=== PATIENT | male | born 1960 | race Caucasian/White ===

== ENCOUNTER → 2020-05-31 10:54 | Outpatient (CLI) | payer OTHER, SELFPAY ==
--- NOTE | 2020-05-31 11:05 | XR_ITS ---
PROCEDURE: XR FOOT WT BEARING RT 3V CLINICAL INDICATION: DM ulcer of right great toe. COMPARISON: No exams were available for comparison FINDINGS: No fracture or dislocation. No lytic or blastic change. There is normal mineralization. The joint spaces are well-preserved. There is minor spurring of the navicular 1st cuneiform articulation. There are small spurs of the calcaneus at the insertion of Achilles tendon and plantar tendon. There is marked flattening of the plantar arch. Other findings:None. IMPRESSION: Marked pes planus, minor degenerative spurring of the navicular 1st cuneiform articulation Dictated by: Dr. Clem Cisse MD 06/01/2020 10:17 Dr. Clem Cisse MD in [place] 06/01/2020 10:17
--- NOTE | 2020-05-31 11:05 | XR_ITS ---
PROCEDURE: XR FOOT WT BEARING LT 3V CLINICAL INDICATION: Diabetes COMPARISON: Right foot same date FINDINGS: No fracture or dislocation. No lytic or blastic change. There is normal mineralization. The joint spaces are well-preserved. No significant degenerative/arthritic changes. No erosive changes evident. There are small spurs of the calcaneus at the insertion of Achilles tendon and plantar tendon. There is mild flattening of the plantar arch. Other findings:None. IMPRESSION: Calcaneal spurs and mild pes planus Dictated by: Dr. Clem Cisse MD 06/01/2020 10:19 Dr. Clem Cisse MD in [place] 06/01/2020 10:19
[2020-05-31 11:28] LABS: Basophils # 0.1 K/mm3 (0-0.2); Eosinophils # 0.5 K/mm3 (0.0-0.4); Eosinophils % 6.5 % (0.1-12.0); Hematocrit 40.3 % (42.0-52.0); Hemoglobin 14.6 g/dL (14.1-18.0); Lymphocytes % 26.7 % (10-50); Mean Corpuscular HGB Conc 36.2 g/dL (31.8-35.4); Mean Corpuscular Hemoglobin 32.4 pg (27.0-31.2); Mean Corpuscular Volume 89.4 fl (80-94); Mean Platelet Volume 8.7 fl (7.4-10.4); Monocytes # 0.7 K/mm3 (0.1-1.0); Monocytes % 9.2 % (1.7-9.3); Neutrophils # 4.2 K/mm3 (1.8-7.8); Neutrophils % 56.6 % (37.0-80.0); Platelet Count 170 K/mm3 (142-424); Red Blood Count 4.51 M/mm3 (4.60-6.20); Red Cell Distribution Width 15.2 % (11.5-17.5); White Blood Count 7.3 K/mm3 (4.8-10.8)
[2020-05-31 12:11] LABS: Erythrocyte Sedimentation Rate 8 mm/hr (0-20)
[2020-05-31 12:43] LABS: Chloride 97 mmol/L (98-107); Potassium 4.6 mmoL/L (3.5-5.1); Sodium 134 mmol/L (136-145)
[2020-05-31 12:46] LABS: Alanine Aminotransferase 40 U/L (12-78); Albumin Level 3.9 g/dl (3.5-5.0); Albumin/Globulin Ratio 1.6 (1.1-1.8); Alkaline Phosphatase 102 U/L (38-126); Anion Gap 13.6 mEq/L (5-15); Aspartate Amino Transferase 40 U/L (17-59); Bilirubin,Total 0.7 mg/dl (0.2-1.3); Blood Urea Nitrogen 15 mg/dl (9-20); Carbon Dioxide 28 mmol/L (22.0-30.0); Estimated Glomerular Filt Rate 99 ml/min (>60); GFR (African American) 120 ML/MIN (>60); Globulin 2.4 g/dL (1.3-3.2); Total Protein,Serum 6.3 g/dl (6.3-8.2)
[2020-05-31 12:47] LABS: Calcium 9.3 mg/dl (8.4-10.2); Glucose 241 mg/dl (74-100)
[2020-05-31 12:57] LABS: C-Reactive Protein 2.5 mg/L (0-4)
== END ==
PROVIDERS: Visit Provider Nurse Practitioner
DX: E11.621 Type 2 diabetes mellitus with foot ulcer (principal); L97.519 Non-pressure chronic ulcer of other part of right foot with unspecified severity; Z79.4 Long term (current) use of insulin
CPT/HCPCS: 36415; 73630; 80053; 85025; 85651; 86140

== ENCOUNTER → 2020-08-01 17:22 | Outpatient (CLI) | payer OTHER, SELFPAY | PROVIDERS: Visit Provider Nurse Practitioner | DX: E08.621 Diabetes mellitus due to underlying condition with foot ulcer (principal); L97.512 Non-pressure chronic ulcer of other part of right foot with fat layer exposed; Z51.89 Encounter for other specified aftercare; Z79.4 Long term (current) use of insulin | CPT/HCPCS: 87070; 87077; 87186; 87205 ==

== ENCOUNTER → 2020-09-26 14:15 | Outpatient (CLI) | payer OTHER, SELFPAY ==
[2020-09-26 14:41] LABS: Basophils # 0.1 K/mm3 (0-0.2); Basophils % 0.7 % (0.1-2.0); Eosinophils # 0.2 K/mm3 (0.0-0.4); Hematocrit 45.6 % (42.0-52.0); Hemoglobin 15.8 g/dL (14.1-18.0); Lymphocytes # 2.4 K/mm3 (0.7-4.5); Lymphocytes % 29.8 % (10-50); Mean Corpuscular HGB Conc 34.7 g/dL (31.8-35.4); Mean Corpuscular Hemoglobin 30.2 pg (27.0-31.2); Mean Corpuscular Volume 87.2 fl (80-94); Monocytes # 0.6 K/mm3 (0.1-1.0); Monocytes % 6.8 % (1.7-9.3); Neutrophils # 4.9 K/mm3 (1.8-7.8); Neutrophils % 59.8 % (37.0-80.0); Platelet Count 236 K/mm3 (142-424); Red Blood Count 5.23 M/mm3 (4.60-6.20); Red Cell Distribution Width 13.2 % (11.5-17.5); White Blood Count 8.2 K/mm3 (4.8-10.8)
[2020-09-26 14:56] LABS: Hemoglobin A1C 8.5 % (4.0-6.0)
[2020-09-26 15:05] LABS: Chloride 98 mmol/L (98-107); Potassium 4.1 mmoL/L (3.5-5.1); Sodium 135 mmol/L (136-145)
[2020-09-26 15:07] LABS: Alanine Aminotransferase 32 U/L (12-78); Aspartate Amino Transferase 29 U/L (17-59); Blood Urea Nitrogen 18 mg/dl (9-20); Erythrocyte Sedimentation Rate 14 mm/hr (0-20); Estimated Glomerular Filt Rate 86 ml/min (>60); GFR (African American) 105 ML/MIN (>60)
[2020-09-26 15:08] LABS: Albumin Level 4.5 g/dl (3.5-5.0); Albumin/Globulin Ratio 1.5 (1.1-1.8); Alkaline Phosphatase 103 U/L (38-126); Anion Gap 12.1 mEq/L (5-15); Calcium 9.8 mg/dl (8.4-10.2); Carbon Dioxide 29 mmol/L (22.0-30.0); Glucose 156 mg/dl (74-100); Total Protein,Serum 7.5 g/dl (6.3-8.2)
[2020-09-26 15:13] LABS: C-Reactive Protein 4.6 mg/L (0-4)
== END ==
PROVIDERS: Visit Provider Nurse Practitioner
DX: E11.621 Type 2 diabetes mellitus with foot ulcer (principal); L03.90 Cellulitis, unspecified; R79.82 Elevated C-reactive protein (CRP); Z79.4 Long term (current) use of insulin; M79.674 Pain in right toe(s); L97.519 Non-pressure chronic ulcer of other part of right foot with unspecified severity
CPT/HCPCS: 36415; 80053; 83036; 85025; 85651; 86140

== ENCOUNTER → 2021-03-10 09:42 | Outpatient (CLI) | payer OTHER, SELFPAY ==
--- NOTE | 2021-03-10 09:47 | XR_ITS ---
PROCEDURE: XR FOOT WT BEARING LT 3V CLINICAL INDICATION: pain COMPARISON: CR XR FOOT WT BEARING LT 3V from 05/31/2020 CR XR FOOT WT BEARING RT 3V from 05/31/2020 FINDINGS: No fracture or dislocation. No lytic or blastic change. There is normal mineralization. Mild pes planus. Small calcaneal spur. Vascular calcifications are noted. Other findings:None. IMPRESSION: Chronic changes with mild pes planus and small calcaneal spur. No change from the previous exam Dictated by: Fabian Dior MD 03/10/2021 11:19 Fabian Dior MD in [place] 03/10/2021 11:19
--- NOTE | 2021-03-10 09:47 | XR_ITS ---
PROCEDURE: XR FOOT WT BEARING RT 3V CLINICAL INDICATION: Wound COMPARISON: CR XR FOOT WT BEARING LT 3V from 05/31/2020 CR XR FOOT WT BEARING RT 3V from 05/31/2020 FINDINGS: No fracture or dislocation. No lytic or blastic change. There is normal mineralization. Minimal osteoarthritic change 1st MTP joint with mild pes planus. Osteoarthritis noted at the navicular cuneiform joint with anterior spurring of the distal navicular. There is pes planus with 2 mm superior displacement of the navicular at the talonavicular joint. There is a small calcaneal spur Other findings:None. IMPRESSION: Osteoarthritic changes with pes planus Dictated by: Fabian Dior MD 03/10/2021 11:20 Fabian Dior MD in [place] 03/10/2021 11:20
== END ==
PROVIDERS: PCP Family Medicine; Visit Provider Podiatrist
DX: E11.621 Type 2 diabetes mellitus with foot ulcer (principal); E11.8 Type 2 diabetes mellitus with unspecified complications; Z51.89 Encounter for other specified aftercare; L97.502 Non-pressure chronic ulcer of other part of unspecified foot with fat layer exposed
CPT/HCPCS: 73630

== ENCOUNTER → 2021-03-25 15:56 | Outpatient (CLI) | payer OTHER, SELFPAY ==
[2021-03-25 16:14] LABS: Basophils # 0.1 K/mm3 (0-0.2); Basophils % 0.8 % (0.1-2.0); Eosinophils # 0.3 K/mm3 (0.0-0.4); Eosinophils % 3.7 % (0.1-12.0); Hemoglobin 14.5 g/dL (14.1-18.0); Lymphocytes # 2.2 K/mm3 (0.7-4.5); Lymphocytes % 25.3 % (10-50); Mean Corpuscular HGB Conc 34.5 g/dL (31.8-35.4); Mean Corpuscular Hemoglobin 30.2 pg (27.0-31.2); Mean Corpuscular Volume 87.5 fl (80-94); Mean Platelet Volume 7.3 fl (7.4-10.4); Monocytes # 0.5 K/mm3 (0.1-1.0); Monocytes % 5.8 % (1.7-9.3); Neutrophils # 5.7 K/mm3 (1.8-7.8); Neutrophils % 64.5 % (37.0-80.0); Platelet Count 214 K/mm3 (142-424); Red Cell Distribution Width 13.6 % (11.5-17.5); White Blood Count 8.8 K/mm3 (4.8-10.8)
[2021-03-25 16:39] LABS: Alanine Aminotransferase 30 U/L (12-78); Albumin Level 4.2 g/dl (3.5-5.0); Albumin/Globulin Ratio 1.7 (1.1-1.8); Alkaline Phosphatase 96 U/L (38-126); Anion Gap 12.3 mEq/L (5-15); Aspartate Amino Transferase 27 U/L (17-59); Bilirubin,Total 1.3 mg/dl (0.2-1.3); Blood Urea Nitrogen 18 mg/dl (9-20); Calcium 9.1 mg/dl (8.4-10.2); Carbon Dioxide 28 mmol/L (22.0-30.0); Chloride 100 mmol/L (98-107); Estimated Glomerular Filt Rate 115 ml/min (>60); GFR (African American) 139 ML/MIN (>60); Globulin 2.5 g/dL (1.3-3.2); Glucose 249 mg/dl (74-100); Potassium 4.3 mmoL/L (3.5-5.1); Sodium 136 mmol/L (136-145); Total Protein,Serum 6.7 g/dl (6.3-8.2); Uric Acid 4.3 mg/dl (3.5-8.5)
[2021-03-25 16:44] LABS: C-Reactive Protein 8.1 mg/L (0-4)
[2021-03-25 16:46] LABS: Erythrocyte Sedimentation Rate 23 mm/hr (0-20)
[2021-03-25 17:17] LABS: Hemoglobin A1C 8.3 % (4.0-6.0)
== END ==
PROVIDERS: Visit Provider Podiatrist
DX: Z51.89 Encounter for other specified aftercare; Z79.4 Long term (current) use of insulin; E11.621 Type 2 diabetes mellitus with foot ulcer; L97.519 Non-pressure chronic ulcer of other part of right foot with unspecified severity
CPT/HCPCS: 36415; 80053; 83036; 84550; 85025; 85651; 86140

== ENCOUNTER → 2021-04-02 09:24 | Outpatient (CLI) | payer OTHER, SELFPAY ==
--- NOTE | 2021-04-02 09:24 | MR_ITS ---
PROCEDURE: MR FOOT RT WO/W CON CLINICAL INDICATION: Non Healing DM ulcer Nonhealing ulcer 1st digit COMPARISON: CR XR FOOT WT BEARING RT 3V from 03/10/2021 TECHNIQUE: Routine multiplanar multi echo sequences are performed without and with gadolinium enhancement. FINDINGS: There is mild diffuse increased in T2 signal involving the distal phalanx of the great toe with some heterogeneous increase in T2 signal involving the proximal phalanx of the great toe. First metatarsal has an unremarkable appearance. No fluid evident within the 1st metatarsophalangeal joint. There is a small focal circumscribed area of increased T2 signal in the proximal aspect of the proximal phalanx of the 1st digit measuring 8 mm and may be due to a subchondral cyst. There is some mild soft tissue swelling of the great toe. There is mild diffuse contrast enhancement of the proximal and distal phalanx of the great toe. There is thickening of the toenail of the great toe which shows contrast enhancement. Soft tissue defect is present along the plantar and medial aspect of the great toe at the interphalangeal junction. No obvious fistula. No abscess apparent. IMPRESSION: 1. Increased T2 signal intensity with mild contrast enhancement involving the proximal and distal phalanx of the great toe. These findings may be related to osteomyelitis or reactive edema. No obvious bony destructive process. 2. Mild cellulitis and onchomycosis of the great toe Dictated by: Fabian Dior MD 04/03/2021 13:31 Fabian Dior MD in [place] 04/03/2021 13:31
--- NOTE | 2021-04-02 10:41 | US_ITS ---
APPROVED REPORT Exam Type: Lower Extremity Segmental Pressures Diplomatic Interpreter: Connie Ramesh RVT Indications Non-healing Ulcer: Right ULCER RT GREAT TOE Risk Factors Hypertension Diabetes Pressures/Indices Right Indices Left Indices Brachial 135.00 mmHg Brachial 127.00 mmHg Low Thigh 151.00 mmHg 1.12 Low Thigh 162.00 mmHg 1.20 Calf 192.00 mmHg 1.42 Calf 214.00 mmHg 1.59 Ankle(PT) 245.00 mmHg 1.81 Ankle(PT) 235.00 mmHg 1.74 Ankle(DP) 163.00 mmHg 1.21 Ankle(DP) 185.00 mmHg 1.37 Digit 175.00 mmHg 1.30 Digit 92.00 mmHg 0.68 Findings RT TIANNA:1.81 LT TIANNA:1.74 RT TBI:1.30 LT TBI:0.68 NORMAL PULSES BILATERAL DAMPENED WAVEFORM LT ANKLE Conclusion RT TIANNA:1.81 LT TIANNA:1.74 RT TBI:1.30 LT TBI:0.68 NORMAL PULSES BILATERAL DAMPENED WAVEFORM LT ANKLE Elevated TIANNA bilat c/w hardening of the arteries Electronically signed by : Fabian Dior MD 04/02/2021 16:18:33
== END ==
PROVIDERS: PCP Family Medicine; Visit Provider Podiatrist
DX: L97.512 Non-pressure chronic ulcer of other part of right foot with fat layer exposed; R09.89 Other specified symptoms and signs involving the circulatory and respiratory systems; Z79.4 Long term (current) use of insulin; E11.621 Type 2 diabetes mellitus with foot ulcer; M79.674 Pain in right toe(s); R68.89 Other general symptoms and signs; R94.31 Abnormal electrocardiogram [ECG] [EKG]; R94.30 Abnormal result of cardiovascular function study, unspecified; E78.2 Mixed hyperlipidemia
CPT/HCPCS: 73720; 93923; A9576

== ENCOUNTER → 2021-05-14 08:50 | Outpatient (CLI) | payer OTHER, SELFPAY ==
[2021-05-14 10:14] LABS: Anion Gap 20.8 mEq/L (5-15); Blood Urea Nitrogen 30 mg/dl (9-20); Calcium 9.6 mg/dl (8.4-10.2); Carbon Dioxide 24 mmol/L (22.0-30.0); Chloride 91 mmol/L (98-107); Estimated Glomerular Filt Rate 56 ml/min (>60); GFR (African American) 68 ML/MIN (>60); Glucose 396 mg/dl (74-100); Potassium 4.8 mmoL/L (3.5-5.1); Sodium 131 mmol/L (136-145)
[2021-05-14 10:17] LABS: Basophils # 0.1 K/mm3 (0-0.2); Basophils % 0.6 % (0.1-2.0); Eosinophils # 0.1 K/mm3 (0.0-0.4); Eosinophils % 0.8 % (0.1-12.0); Hematocrit 44.2 % (42.0-52.0); Lymphocytes # 1.6 K/mm3 (0.7-4.5); Lymphocytes % 13.7 % (10-50); Mean Corpuscular Hemoglobin 31.4 pg (27.0-31.2); Mean Corpuscular Volume 92.4 fl (80-94); Mean Platelet Volume 7.5 fl (7.4-10.4); Monocytes # 0.8 K/mm3 (0.1-1.0); Monocytes % 7.3 % (1.7-9.3); Neutrophils # 8.8 K/mm3 (1.8-7.8); Neutrophils % 77.7 % (37.0-80.0); Platelet Count 297 K/mm3 (142-424); Red Blood Count 4.79 M/mm3 (4.60-6.20); Red Cell Distribution Width 12.7 % (11.5-17.5); White Blood Count 11.3 K/mm3 (4.8-10.8)
== END ==
PROVIDERS: Visit Provider Nurse Practitioner Family
DX: E11.65 Type 2 diabetes mellitus with hyperglycemia (principal); L97.512 Non-pressure chronic ulcer of other part of right foot with fat layer exposed; M79.674 Pain in right toe(s); I10 Essential (primary) hypertension; E78.5 Hyperlipidemia, unspecified; R68.89 Other general symptoms and signs; R94.31 Abnormal electrocardiogram [ECG] [EKG]; Z79.4 Long term (current) use of insulin
CPT/HCPCS: 36415; 80048; 85025; C9803; U0003; U0005

== ENCOUNTER → 2021-05-23 11:44 | Outpatient (CLI) | payer OTHER, SELFPAY | PROVIDERS: PCP Family Medicine; Visit Provider Nurse Practitioner | DX: Z20.822 Contact with and (suspected) exposure to COVID-19 (principal) | CPT/HCPCS: C9803; U0003; U0005 ==

== ENCOUNTER 2021-05-30 09:35 | Day surgery (SDC) | payer OTHER, SELFPAY ==
--- NOTE | 2021-05-24 10:13 | SUR.PREOP ---
05/24/2021 1010 pt calls to reschedule procedure. states he wont be off work, had called and requested to have procedure moved to Wednesday05/30/2021. instructed to call Dr. Ochoa office wednesday to reschedule
[2021-05-30] VITALS (12 sets, daily range): BP systolic 136–180; BP diastolic 70–97; PULSE 58–81; RESP 16–18; O2SAT 94–100; BMI 40.1
--- NOTE | 2021-05-30 07:14 | IR_ITS ---
APPROVED REPORT Patient Location: Outpatient PROCEDURES Left femoral arterial access with catheter placed in the abdominal aorta Abdominal aortography Repositioning the catheter in the abdominal aorta Bilateral iliofemoral runoff INDICATION Abnormal TIANNA, [place] claudication class IV-V Informed consent was obtained prior to the procedure. COMPLICATIONS NONE Estimated Blood Loss: LESS THAN 10 ML TECHNIQUE 1% lidocaine used to anesthetize the left femoral groin. The left femoral artery was accessed via the Seldinger technique. Using fluoroscopic guidance the JR4 catheter was advanced from the aorta into the right common iliac artery and then advanced into the right superficial femoral artery. There unilateral selective angiography with runoff to the foot was performed. Following this the catheter was pulled back into the right common iliac artery and angiography was performed. At the end of the procedure the patient was transferred to the postop holding area in stable condition for sheath removal. 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 Medical management 2. Risk factor modification Electronically signed by : Catrachito Barber MD 05/30/2021 13:05:54
[2021-05-30 10:06] LABS: Coronavirus 19, PCR Not Detected (NotDetected); Influenza A, PCR Not Detected (NotDetected); Influenza B, PCR Not Detected (NotDetected)
[2021-05-30 10:20] LABS: Chloride 97 mmol/L (98-107); Potassium 4.3 mmoL/L (3.5-5.1); Sodium 135 mmol/L (136-145)
[2021-05-30 10:23] LABS: Blood Urea Nitrogen 12 mg/dl (9-20); Creatinine Clearance Estimated 202 mL/min (50-200); Estimated Glomerular Filt Rate 115 ml/min (>60); GFR (African American) 139 ML/MIN (>60)
[2021-05-30 10:24] LABS: Anion Gap 14.3 mEq/L (5-15); Calcium 9.3 mg/dl (8.4-10.2); Carbon Dioxide 28 mmol/L (22.0-30.0); Glucose 188 mg/dl (74-100)
== END 2021-05-30 15:51 | disposition home or self-care (01) ==
LOC: CATHLAB 09:37
PROVIDERS: PCP Family Medicine; Visit Provider Internal Medicine
DX: E11.621 Type 2 diabetes mellitus with foot ulcer (principal); L97.512 Non-pressure chronic ulcer of other part of right foot with fat layer exposed; E11.65 Type 2 diabetes mellitus with hyperglycemia; E78.5 Hyperlipidemia, unspecified; I10 Essential (primary) hypertension; M79.674 Pain in right toe(s); R94.31 Abnormal electrocardiogram [ECG] [EKG]; Z79.4 Long term (current) use of insulin; M86.9 Osteomyelitis, unspecified; Z79.899 Other long term (current) drug therapy; Z20.822 Contact with and (suspected) exposure to COVID-19; I70.212 Atherosclerosis of native arteries of extremities with intermittent claudication, left leg
CPT/HCPCS: 36247; 75716; 80048; 99152; C1725; C1769; C9803; J1644; Q9966; U0003; U0005

== ENCOUNTER 2021-06-20 06:05 | Day surgery (SDC) | payer OTHER, SELFPAY ==
[2021-06-16 12:23] VITALS: BMI 40.1
[2021-06-20 06:29] VITALS: BP 132/63; PULSE 76; RESP 18; TEMP 36.3; O2SAT 98
--- NOTE | 2021-06-20 07:35 | HMH.ANESCL ---
[facility] Anesthesia Checklist - Patient Identification Patient Identification: Arm Band, Verbal (Name & ) - Structural Data Admitted From: Home Planned Operative Procedure/s: RIGHT hALUX BONE BIOPSY Consent for Planned Operative Procedure(s) Verified: Yes Verified Documents: Surgical Consent - NPO Status Verified Time NPO: 00:00 - Chart Verification Results Verified: None - Additional verifications Anesthesia Reactions: No Hx Blood Transfusions: No Blood Transfusion Reaction: No - Cardiovascular Assessment Heart Sounds: S1 & S2 Pulse Rhythm: Regular - Airway Assessment C-Spine Mobility Assessed: Yes TMJ Mobility Assessed: Yes Dentition: Good Dentition - Neurological Assessment Level of Consciousness: Awake, Alert, Appropriate - Anesthesia Plan Anesthesia Risk discussed: Yes ASA Class: III Anesthesia Type: MAC [facility] History I have reviewed the patient's past medical history: Yes Medical History: Reports:: Diabetes Mellitus Type 2, Hypertension Denies:: Cancer, Diabetes Mellitus Type 1, Internal Pacemaker, MRSA, Seizures *Have you ever received a pneumonia vaccine?: No *Have you received a flu vaccine this season?: No Other Medical History: Reports: Arthritis, Sinus Problems. Denies: Blood Transfusion Reaction Anesthesia experience/problems:: no issues Other Surgeries: Yes: No Previous Surgery, Cardiac Catheterization. No: Pacemaker Amputation: No Fractures: No - *Social History Last grade of school completed: High school graduate Smoking Status: Never smoker Alcohol Intake: current Alcohol Intake Frequency:: holidays/special occasions only Substance Use Type: denies use *Occupational Status:: employed Housing: house Household Members: spouse *Travel in the last 8 weeks: None Family Hx:: Diabetes, Hypertension
--- NOTE | 2021-06-20 08:00 | XR_ITS ---
PROCEDURE: XR FOOT RT MIN 3V CLINICAL INDICATION: Bone biopsy COMPARISON: CR XR FOOT WT BEARING LT 3V from 05/31/2020 CR XR FOOT WT BEARING RT 3V from 05/31/2020 CR XR FOOT WT BEARING LT 3V from 03/10/2021 CR XR FOOT WT BEARING RT 3V from 03/10/2021 MR MR FOOT RT WO/W CON from 04/02/2021 FINDINGS: History given is bone biopsy. There is bandage artifact around the great toe. There does appear to be a nondisplaced transverse fracture involving the proximal aspect of the proximal phalanx. There is ill definition the great toe involving the distal aspect of the proximal phalanx and the proximal aspect of the distal phalanx with some bony destruction of the proximal distal phalanx at the interphalangeal joint. These findings are worrisome for osteomyelitis. Please correlate with the type of surgical procedure. Soft tissue swelling and bandage artifact is present at this area. IMPRESSION: Radiographic appearance is that of a bony destructive process at the interphalangeal joint of the great toe consistent with osteomyelitis. Please correlate with the type of surgical biopsy the patient has undergone. Nondisplaced fracture proximal aspect proximal phalanx of the 1st digit. Dictated by: Fabian Dior MD 06/20/2021 11:28 Fabian Dior MD in [place] 06/20/2021 11:28
--- NOTE | 2021-06-20 08:00 | HMH.OPNOTE ---
Date of procedure: 06/20/21 Pre-op Diagnosis:: 1. Right hallux cellulitis 2. Right diabetic foot ulcer x2 3. Right foot gout 4. Right foot osteoarthritis 5. Rule out right hallux osteomyelitis Post-op Diagnosis:: Same Procedure performed:: 1. Right hallux percutaneous bone biospy x3 2. Right hallux ulcer debridement x2 Surgeon:: Laverne De Leon DPM CERTIFIED FINANCIAL PLANNER:: Other Anesthesia: MAC, local (20cc 05% marcaine plain) Estimated blood loss (mL): 2 Clinical Note:: Indications: 60-year-old diabetic male who has had the right hallux diabetic ulcer for over 10 months. Patient has failed conservative care including: Wound debridement, local wound care, modification of shoe gear, modification of activity, offloading, diabetic shoes, admission with IV antibiotics, oral antibiotics and continues to have edema, erythema and worsening diabetic ulcer. It is medically necessary for treatment planning to rule out osteomyelitis. We discussed conservative care including continued oral vs IV antibiotics and local wound care versus bone biospy. Patient understands that they could have wound healing complications including delayed healing and infection. We discussed that if the wound does not heal, it is possible that they may need more debridement vs amputation. Patient understands if infection spreads into the bone, it may warrant proximal amputation and could result in further loss of digits, loss of partial foot or loss of leg. We discussed the risks and benefits in great detail. Other surgical risks include: prolonged pain and swelling, further infection requiring oral or IV antibiotics, delay in healing of soft tissue or bone, nerve or blood vessel damage, CRPS/RSD, DVT, anesthesia complications, and even . All questions answered. Patient verbalized understanding. Consent obtained. Operative findings:: Diabetic ulcer noted to the right distal phalanx. 1 ulcer was noted dorsal medial over the HIPJ. The other ulcer was noted to the medial plantar hallux. The hallux had cellulitis extending to the first MPJ. The toe was edematous. No purulence malodor or drainage noted. Both ulcers were sharply excisionally debrided with a 15 blade and curette through the skin into/involving subcutaneous tissue. Post debridement: 1) dorsal medial hallux ulcer: 100% granular, 0.4 x 0.5 x 0.2 cm 2) plantar medial hallux ulcer: 100% granular, 0.3 x 0.3 x 0.2 cm Operative note:: On this date and time patient was deemed an appropriate surgical candidate. With informed consent signed, the patient was taken to the operating theater room. The patient was positioned supine. MAC anesthesia was induced. No tourniquet used. Pre-op right forefoot block given with 20 cc 0.5% marcaine plain. The right lower extremity was prepped and draped in normal sterile fashion. Right hallux percutaneous bone biospy x3: An incision was mapped out over the plantar aspect of the distal phalanx. Dissection carried down full-thickness to the level of bone. A Jamshidi needle was used to remove a piece of bone which was sent to both pathology and as bone culture. The bone was soft and was easily pushed from the distal phalanx plantarly into the toenail dorsally. Next an incision was made over the dorsal distal phalanx. Dissection carried down full-thickness to the bone. Jamshidi needle used to remove a piece of bone which was also sent as bone culture and pathology. This bone was also soft. No obvious malodor or drainage noted. Due to the soft crumbly nature of the bone, decision was made to also perform bone biopsy from the proximal phalanx. Incision was mapped out over the dorsal proximal phalanx, dissection full-thickness to the bone. Jamshidi needle used to obtain a piece of bone which was sent for bone culture and pathology. Proximal phalanx bone was hard in texture and wider in color. Gentamicin and saline irrigation was used to flush the sites. 3-0 Prolene was used to reapproximate the skin in an interrupted
[2021-06-20 08:03] VITALS: BP 78/44; PULSE 66; RESP 18; TEMP 36.1; O2SAT 96
[2021-06-20 08:13] VITALS: BP 77/43; PULSE 67; RESP 18; O2SAT 96
[2021-06-20 08:23] VITALS: BP 101/60; PULSE 69; RESP 18; O2SAT 98
[2021-06-20 08:33] VITALS: BP 109/49; PULSE 69; RESP 18; TEMP 36.2; O2SAT 98
== END 2021-06-20 08:33 | disposition home or self-care (01) ==
LOC: OR 06:07
PROVIDERS: PCP Family Medicine; Visit Provider Podiatrist
PROC: (CPT 11044; principal; 2021-06-20 07:30)
DX: E11.621 Type 2 diabetes mellitus with foot ulcer (principal); M1A.9XX0 Chronic gout, unspecified, without tophus (tophi); L84 Corns and callosities; E11.65 Type 2 diabetes mellitus with hyperglycemia; Z79.4 Long term (current) use of insulin; L97.516 Non-pressure chronic ulcer of other part of right foot with bone involvement without evidence of necrosis; L97.512 Non-pressure chronic ulcer of other part of right foot with fat layer exposed
CPT/HCPCS: 11044; 11042; 73630; 87077; 87186; 88304; 96374

== ENCOUNTER → 2021-06-23 07:01 | Outpatient (CLI) | payer OTHER, SELFPAY | PROVIDERS: PCP Family Medicine; Visit Provider Physician Assistant | DX: E11.65 Type 2 diabetes mellitus with hyperglycemia (principal); E78.2 Mixed hyperlipidemia; I10 Essential (primary) hypertension; L97.919 Non-pressure chronic ulcer of unspecified part of right lower leg with unspecified severity; R94.31 Abnormal electrocardiogram [ECG] [EKG]; Z79.84 Long term (current) use of oral hypoglycemic drugs; R06.02 Shortness of breath | CPT/HCPCS: 93306 ==

== ENCOUNTER → 2021-07-07 15:09 | Outpatient (CLI) | payer OTHER, SELFPAY ==
[2021-07-07 15:56] LABS: Basophils # 0.1 K/mm3 (0-0.2); Basophils % 0.6 % (0.1-2.0); Eosinophils # 0.4 K/mm3 (0.0-0.4); Eosinophils % 3.6 % (0.1-12.0); Hematocrit 46.4 % (42.0-52.0); Hemoglobin 15.6 g/dL (14.1-18.0); Lymphocytes # 2.8 K/mm3 (0.7-4.5); Lymphocytes % 26.3 % (10-50); Mean Corpuscular HGB Conc 33.6 g/dL (31.8-35.4); Mean Corpuscular Hemoglobin 30.2 pg (27.0-31.2); Monocytes # 0.6 K/mm3 (0.1-1.0); Monocytes % 5.4 % (1.7-9.3); Neutrophils # 6.9 K/mm3 (1.8-7.8); Neutrophils % 64.1 % (37.0-80.0); Platelet Count 242 K/mm3 (142-424); Red Blood Count 5.16 M/mm3 (4.60-6.20); Red Cell Distribution Width 14.4 % (11.5-17.5); White Blood Count 10.7 K/mm3 (4.8-10.8)
[2021-07-07 17:02] LABS: Alanine Aminotransferase 21 U/L (12-78); Albumin Level 4.5 g/dl (3.5-5.0); Albumin/Globulin Ratio 1.7 (1.1-1.8); Alkaline Phosphatase 95 U/L (38-126); Anion Gap 14.4 mEq/L (5-15); Aspartate Amino Transferase 27 U/L (17-59); Bilirubin,Total 1.1 mg/dl (0.2-1.3); Blood Urea Nitrogen 16 mg/dl (9-20); Calcium 9.3 mg/dl (8.4-10.2); Carbon Dioxide 26 mmol/L (22.0-30.0); Chloride 100 mmol/L (98-107); Estimated Glomerular Filt Rate 99 ml/min (>60); GFR (African American) 119 ML/MIN (>60); Globulin 2.6 g/dL (1.3-3.2); Glucose 83 mg/dl (74-100); Potassium 4.4 mmoL/L (3.5-5.1); Sodium 136 mmol/L (136-145); Total Protein,Serum 7.1 g/dl (6.3-8.2)
[2021-07-07 17:08] LABS: C-Reactive Protein 3.5 mg/L (0-4)
[2021-07-07 20:14] LABS: Erythrocyte Sedimentation Rate 5 mm/hr (0-20)
== END ==
PROVIDERS: Visit Provider Podiatrist
DX: E11.621 Type 2 diabetes mellitus with foot ulcer (principal); L97.519 Non-pressure chronic ulcer of other part of right foot with unspecified severity; Z79.4 Long term (current) use of insulin; Z98.890 Other specified postprocedural states
CPT/HCPCS: 36415; 80053; 85025; 85651; 86140

== ENCOUNTER → 2023-03-11 14:00 | Outpatient (CLI) | payer OTHER, SELFPAY ==
[2023-03-11 14:34] LABS: Basophils # 0.1 K/mm3 (0-0.2); Basophils % 0.6 % (0.1-2.0); Eosinophils # 0.4 K/mm3 (0.0-0.4); Eosinophils % 3.9 % (0.1-12.0); Hematocrit 44.8 % (42.0-52.0); Hemoglobin 14.9 g/dL (14.1-18.0); Lymphocytes # 2.2 K/mm3 (0.7-4.5); Lymphocytes % 25.2 % (10-50); Mean Corpuscular HGB Conc 33.2 g/dL (31.8-35.4); Mean Corpuscular Hemoglobin 29.3 pg (27.0-31.2); Mean Corpuscular Volume 88.3 fl (80-94); Mean Platelet Volume 7.4 fl (7.4-10.4); Monocytes # 0.6 K/mm3 (0.1-1.0); Monocytes % 7.2 % (1.7-9.3); Neutrophils # 5.6 K/mm3 (1.8-7.8); Neutrophils % 63.1 % (37.0-80.0); Platelet Count 205 K/mm3 (142-424); Red Blood Count 5.08 M/mm3 (4.60-6.20); Red Cell Distribution Width 14.1 % (11.5-17.5); White Blood Count 8.8 K/mm3 (4.8-10.8)
[2023-03-11 15:03] LABS: Alanine Aminotransferase 24 U/L (12-78); Albumin Level 4.4 g/dl (3.5-5.0); Alkaline Phosphatase 107 U/L (38-126); Anion Gap 12.1 mEq/L (5-15); Aspartate Amino Transferase 25 U/L (17-59); Bilirubin,Unconjugated 1.1 mg/dL (0.0-1.1); Blood Urea Nitrogen 22 mg/dl (9-20); Calcium 9.2 mg/dl (8.4-10.2); Carbon Dioxide 27 mmol/L (22.0-30.0); Chloride 102 mmol/L (98-107); Chol/HDL Ratio 1.9 (1-3.5); Cholesterol 88 mg/dl (140-200); Estimated Glomerular Filt Rate 86 ml/min (>60); GFR (African American) 103 ML/MIN (>60); Glucose 86 mg/dl (74-100); HDL Cholesterol 46 mg/dl (40-60); Potassium 4.1 mmoL/L (3.5-5.1); Sodium 137 mmol/L (136-145); Total Protein,Serum 6.9 g/dl (6.3-8.2); Triglycerides 108 mg/dl (30-150); VLDL Cholesterol 22 mg/dL (0-40)
[2023-03-11 15:16] LABS: Direct LDL Cholesterol < 30.00 mg/dL (100-129)
[2023-03-11 15:34] LABS: Thyroid Stimulating Hormone 2.64 uIU/mL (0.465-4.68)
== END ==
PROVIDERS: PCP Family Medicine; Visit Provider Nurse Practitioner
DX: R06.00 Dyspnea, unspecified (principal); R07.9 Chest pain, unspecified; R94.31 Abnormal electrocardiogram [ECG] [EKG]; I10 Essential (primary) hypertension; E78.2 Mixed hyperlipidemia; I73.9 Peripheral vascular disease, unspecified
CPT/HCPCS: 36415; 80048; 80061; 80076; 83735; 84439; 84443; 85025